=== PATIENT | female | born 1950 | race Caucasian/White ===

== ENCOUNTER 2017-05-31 10:54 | Day surgery (SDC) | payer OTHER ==
[~2017-05-31] VITALS: Ht 170.2 cm; Wt 136.0 kg
[~2017-05-31 10:54] MED LIST: ADVIL,NUPRIN,M200 MG PO; ALDACTONE25 MG PO; ASPIRIN81 M2 PO; BIOTIN1000 MICRO PO; CYANOCOBALAM1000 MCG PO; CYMBALTA60 MG PO; FOLIC ACID0.8 MG PO; LO-DOSE ASPIRIN81 M1 PO; MAGNESIUM200 MG PO; METFORMIN HCL1000 MG PO; METFORMIN HCL500 M1 PO; ROCEPHIN 2 GM VI2 GM IM; SIMVASTATIN40 MG PO; SPIRONOLACTONE25 MG PO; TRULICITY1.5 MG/0.5 SC; VESICARE5 MG PO; WELLBUTRIN XL150 MG PO
[2017-05-31 11:50] VITALS: BP 132/64
[2017-05-31 12:29] LABS: POINT-OF-CARE METER ID UU14174212
[2017-05-31 14:25] LABS: POINT-OF-CARE METER ID UU13113675; POINT-OF-CARE USER ID 515036437
[2017-05-31 14:42] VITALS: BP 143/78
[2017-05-31 15:14] VITALS: BP 138/64
== END 2017-05-31 15:25 | disposition home or self-care (01) ==
LOC: SDC 10:54
PROVIDERS: Orthopaedic Surgery Hand Surgery
DX: M65.4 Radial styloid tenosynovitis [de Quervain] (principal); M67.432 Ganglion, left wrist; I10 Essential (primary) hypertension; E11.9 Type 2 diabetes mellitus without complications; Z86.718 Personal history of other venous thrombosis and embolism; Z88.0 Allergy status to penicillin; Z79.84 Long term (current) use of oral hypoglycemic drugs; Z79.82 Long term (current) use of aspirin
CPT/HCPCS: 82948; J2250; Q0175; S0020